=== PATIENT | female | born 1965 | race Caucasian/White ===

== ENCOUNTER 2018-07-26 18:07 | Emergency (ER) | END 2018-07-26 23:26 | disposition home or self-care (01) ==

== ENCOUNTER 2018-07-29 12:55 | Emergency (ER) | END 2018-07-29 14:12 | disposition home or self-care (01) ==

== ENCOUNTER 2018-08-01 12:55 | Emergency (ER) | END 2018-08-01 15:03 | disposition home or self-care (01) ==